=== PATIENT | male | born 1980 | race Caucasian/White ===

== ENCOUNTER 2019-08-04 11:22 | Emergency (ER) | payer SELFPAY ==
[~2019-08-04] VITALS: Ht 180.3 cm; Wt 91.2 kg
[2019-08-04 12:38] LABS: BASO % 0.2 % (0.0-1.0); EOS % 0.2 % (1.0-4.0); HEMATOCRIT 45.8 % (42.0-52.0); LYMPH # 1.3 10*3/uL (1.3-4.4); LYMPH % 15.7 % (27.0-41.0); MEAN CELL VOLUME 92.9 fl (80.0-94.0); MEAN CORPUSCULAR HGB 30.4 pg (27.0-31.0); MEAN CORPUSCULAR HGB CONC 32.8 g/dl (33.0-37.0); MEAN PLATELET VOLUME 9.1 fl (9.6-12.3); MONO # 0.9 10*3/uL (0.1-1.0); NEUT # 5.9 10*3/uL (2.3-7.9); NEUT % 72.3 % (47.0-73.0); PLATELET COUNT AUTOMATED 249 10*3/uL (130-400); RED BLOOD COUNT 4.93 10*6/uL (4.50-5.90); RED CELL DISTRI WIDTH 13.2 % (0-14.5); WHITE BLOOD COUNT 8.2 10*3/uL (4.8-10.8)
[2019-08-04 12:55] LABS: ALBUMIN 3.8 gm/dl (3.1-4.5); ALKALINE PHOSPHATASE 56 U/L (45-117); BUN 14 mg/dl (7-24); CHLORIDE 102 mmol/L (98-107); CREATININE 1.19 mg/dL (0.70-1.30); POTASSIUM 3.7 mmol/L (3.5-5.1); SGOT/AST 17 IU/L (3-35); SGPT/ALT 32 U/L (12-78); SODIUM 139 mmol/L (136-145); TOTAL PROTEIN 6.9 gm/dL (6.4-8.2)
[2019-08-04] MEDS ORDERED: PROAIR HFA8.5 GM INH (13:31)
[2019-08-04] MEDS ORDERED: PREDNISONE50 MG PO (13:31)
[2019-08-04] MEDS ORDERED: ZITHROMAX250 MG PO (13:31)
== END 2019-08-04 13:46 | disposition home or self-care (01) ==
LOC: ED 11:22
PROVIDERS: Nurse Practitioner
DX: J40 Bronchitis, not specified as acute or chronic (principal); H60.93 Unspecified otitis externa, bilateral; F17.200 Nicotine dependence, unspecified, uncomplicated; Z88.0 Allergy status to penicillin